=== PATIENT | male | born 1995 | race Hispanic/Latino ===

== ENCOUNTER 2018-11-10 08:22 | Observation (INO) | payer OTHER, SELFPAY ==
[2018-11-10] MEDS ORDERED: ONDANSETRON 4 MG/2 ML VIAL ONE (09:03)
[2018-11-10] MEDS ORDERED: MORPHINE 4 MG/ML SYR ONE (09:03)
[2018-11-10] MEDS ORDERED: NA CHLORIDE 0.9% 1,000 ML ONE (09:04)
[2018-11-10 09:14] LABS: Absolute Monocytes 0.8 K/uL (0.1-1.3); Absolute Neutrophil 12.8 K/uL (1.8-8.0); Basophils % 0.2 % (0-1.3); Eosinophils % 0.1 % (0-4.4); Hematocrit 53.4 % (39.6-49.0); Lymphocytes % 7.1 % (15.3-44.8); MPV 8.6 fL (7.6-11.3); Monocytes % 5.5 % (3.3-12.3); RBC Red Blood Cell Count 6.21 M/uL (4.33-5.43)
[2018-11-10 09:34] LABS: ALT/SGPT 62 U/L (12-78); AST/SGOT 25 U/L (15-37); Albumin 3.9 g/dL (3.4-5.0); Alkaline Phosphatase 115 U/L (45-117); BUN Blood Urea Nitrogen 14 mg/dL (7-18); Bicarbonate 23 mmol/L (21-32); Bilirubin Direct 0.2 mg/dL (0-0.2); Bilirubin Total 0.8 mg/dL (0.2-1.0); Glucose Level 326 mg/dL (74-106); Lipase 61 U/L (73-393); Potassium 3.8 mmol/L (3.5-5.1); Protein, Total 8.8 g/dL (6.4-8.2); Sodium Level 135 mmol/L (136-145)
[2018-11-10 09:53] LABS: Blood Morphology Comment NOT SEEN (NOT SEEN); Platelet Estimate ADEQ
--- NOTE | 2018-11-10 10:14 | RAD REPORT ---
EXAM DESCRIPTION: CTAbdomen Pelvis W Contrast - 11/10/2018 10:00 am CLINICAL HISTORY: Abdominal pain. abdominal pain, IV ONLY COMPARISON: No comparisons TECHNIQUE: Biphasic CT imaging of the abdomen and pelvis was performed with 100 ml non-ionic IV cont rast. All CT scans are performed using dose optimization technique as appropriate and may include automated exposure control or mA/KV adjustment according to patient size. FINDINGS: The lung bases are clear. Diffuse fatty liver is present. The spleen, pancreas, adrenal glands and kidneys are within normal li mits. No definitive bowel obstruction, free air, free fluid or abscess. Multiple mildly dilated and thicken ed small bowel loops are present suggesting a nonspecific enteritis. The appendix is normal. No evid ence of significant lymphadenopathy. No suspicious bony findings. IMPRESSION: Multiple mildly dilated and thickened small bowel loops in the central abdomen likely in dicates a [id number] nonspecific enteritis. Given that in early mechanical small-bowel obstruction can have a similar appearance, a follow-up trevor dy would be recommended if the patient's symptomology worsens over time. Diffuse fatty liver.
--- NOTE | 2018-11-10 10:56 | ER ---
Nurse's Notes [facility] Name: Davy Cruz Age: 23 yrs Sex: Male : 1995 Arrival Date: 11/10/2018 Time: 08:24 Bed 7 Private MD: Diagnosis: Bowel Obstruction;Hyperglycemia Presentation: 11/10 08:33 Presenting complaint: Patient states: upper abd pain, N/V/D that began yesterday. ss Transition of care: patient was not received from another setting of care. Onset of symptoms was November 09, 2018. Risk Assessment: Do you want to hurt yourself or someone else? Patient reports no desire to harm self or others. Initial Sepsis Screen: Does the patient meet any 2 criteria? No. Patient's initial sepsis screen is negative. Does the patient have a suspected source of infection? No. Patient's initial sepsis screen is negative. Care prior to arrival: None. 08:33 Method Of Arrival: Ambulatory ss 08:33 Acuity: MICHAEL 3 ss Historical: - Allergies: 08:34 No Known Allergies; ss - Home Meds: 08:34 None [Active]; ss - PMHx: 08:34 None; ss - PSHx: 08:34 None; ss - Immunization history:: Adult Immunizations up to date. - Social history:: Smoking status: Patient/guardian denies using tobacco. - Ebola Screening: : Patient denies exposure to infectious person Patient denies travel to an Ebola-affected area in the 21 days before illness onset. Screenin:29 Abuse screen: Denies threats or abuse. Denies injuries from another. Nutritional sv screening: No deficits noted. Tuberculosis screening: No symptoms or risk factors identified. Fall Risk None identified. Assessment: 08:45 General: Appears in no apparent distress. uncomfortable, well developed, Behavior is sv calm, cooperative, appropriate for age. Pain: Complains of pain in right upper quadrant and left upper quadrant Pain currently is 9 out of 10 on a pain scale. Pain began 1 day ago. Is continuous. Neuro: Level of Consciousness is awake, alert, obeys commands, Oriented to person, place, time, situation, Moves all extremities. Full function Gait is steady. Respiratory: Respiratory effort is even, unlabored, Respiratory pattern is regular, symmetrical. GI: Abdomen is flat, Abd is soft X 4 quads Abdomen is tender to palpation in right upper quadrant and left upper quadrant Reports diarrhea, nausea, vomiting. Derm: Skin is pink, warm \T\ dry. 10:10 Reassessment: Patient appears in no apparent distress at this time. Patient and/or sv family updated on plan of care and expected duration. Pain level reassessed. Patient is alert, oriented x 3, equal unlabored respirations, skin warm/dry/pink. 11:10 Reassessment: Patient appears in no apparent distress at this time. Patient and/or sv family updated on plan of care and expected duration. Pain level reassessed. Patient is alert, oriented x 3, equal unlabored respirations, skin warm/dry/pink. Patient states feeling better. Patient states symptoms have improved. 11:59 Reassessment: Nurse to call back for report. sv 12:35 Reassessment: Patient appears in no apparent distress at this time. Patient and/or sv family updated on plan of care and expected duration. Pain level reassessed. Patient is alert, oriented x 3, equal unlabored respirations, skin warm/dry/pink. Patient states feeling better. Patient states symptoms have improved. Vital Signs: 08:34 BP 132 / 95; Pulse 103; Resp 16; Temp 97.8(TE); Pulse Ox 97% on R/A; Weight 95.25 kg; Height 5 ft. 6 in. (167.64 cm); Pain 9/10; 09:10 BP 138 / 98; Pulse 107; Resp 18; Pulse Ox 95% ; sv 10:12 BP 134 / 75; Pulse 107; Resp 18; Pulse Ox 95% ; sv 11:58 BP 132 / 80; Pulse 102; Resp 18; Pulse Ox 99% ; sv 08:34 Body Mass Index 33.89 (95.25 kg, 167.64 cm) ED Course: 08:24 Patient arrived in ED. as 08:27 Yon Acharya PA is PHCP. senthilm 08:27 Parag Wolff MD is Attending Physician. [facility] 08:29 Lizeth Ivan, BARBARA is Primary Nurse. sv 08:29 Arm band placed on Patient placed in an exam room, on a stretcher. sv 08:29 Patient has correct armband on for positive identification. Bed in low position. Call sv light in reach. Door closed. Head of bed elevated. 08:34 Triage completed. ss 08:46 Nurse Practitioner and/or Physician Fagoter to see patient. sv 08:50 Missed attempt(s): 20 gauge in right antecubital area. Bleeding controlled, band aid sv applied, catheter tip intact. 08:55 Initial lab(s) drawn, by me, sent to lab. Inserted saline lock: 20 gauge in left sv antecubital area, using aseptic technique. Blood collected. Flushed left antecubital with 5 ml normal saline. 09:09 Radiology exam delayed due to lab results not completed at this time. (BUN/Creatinine). sj 09:[address] Scan. sv 09:[address] via wheelchair. sj 10:01 CT Abd/Pelvis - W/Contrast In Process Unspecified. EDMS 10:[address] Patient [address] back from CT. sg 10:55 Darrel Hemphill DO is Hospitalizing Provider. senthilm 11:59 No provider procedures requiring assistance completed. Patient admitted, IV remains in sv place. intact. Administered Medications: 09:00 Drug: NS 0.9% 1000 ml Route: IV; Rate: 1 bolus; Site: left antecubital; sv 10:20 Follow up: Response: No adverse reaction; IV Status: Completed infusion; IV Intake: sv 1000ml 09:00 Drug: Zofran 4 mg Route: IVP; Site: left antecubital; sv 09:30 Follow up: Response: No adverse reaction sv 09:02 Drug: morphine 4 mg Route: IVP; Site: left antecubital; sv 09:30 Follow up: Response: No adverse reaction sv 11:10 Drug: Flagyl 500 mg Volume: 100 ml; Route: IVPB; Rate: 200 ml/hr; Infused Over: 30 sv mins; Site: left antecubital; 12:20 Follow up: Response: No adverse reaction; IV Status: Completed infusion sg 11:40 Drug: Cipro 400 mg Volume: 200 ml; Route: IVPB; Infused Over: 60 mins; Site: left sg antecubital; 12:46 Follow up: Response: No adverse reaction; IV Status: Completed infusion sg Intake: 10:20 IV: 1000ml; Total: 1000ml. sv Outcome: 10:56 Decision to Hospitalize by Provider. aster 12:37 Admitted to Med/surg accompanied by tech, via wheelchair, room 224, with chart, Report sv called to Elvia JIMENEZ 12:37 Condition: stable 12:37 Instructed on the need for admit. 12:47 Patient left the ED. sg Signatures: Dispatcher [employer] Lizeth Lino RN RN sv Gay, Steven, RN RN sg Mickail, Joel, PA PA jmm Jones, Susan sj Martinez, Amelia as Smirch, Shelby, RN RN ss
--- NOTE | 2018-11-10 10:57 | EDPHYS ---
Physician Documentation [facility] Name: Davy Cruz Age: 23 yrs Sex: Male : 1995 Arrival Date: 11/10/2018 Time: 08:24 Bed 7 Private MD: ED Physician Parag Wolff HPI: 11/10 09:09 This 23 yrs old Male presents to ER via Ambulatory with complaints of jmm Abdominal Pain. 09:09 The patient presents with abdominal pain. Onset: The symptoms/episode began/occurred jmm gradually, 1 day(s) ago. The symptoms radiate to Associated signs and symptoms: Pertinent positives: nausea and vomiting, diarrhea. This is a 23 year old male with no chronic medical conditions that presents to the ED with complaints of epigastric abdominal pain, vomiting, diarrhea beginning 1 day ago. Patient denies recent abx use, denies recent travel. . Historical: - Allergies: 08:34 No Known Allergies; ss - Home Meds: 08:34 None [Active]; ss - PMHx: 08:34 None; ss - PSHx: 08:34 None; ss - Immunization history:: Adult Immunizations up to date. - Social history:: Smoking status: Patient/guardian denies using tobacco. - Ebola Screening: : Patient denies exposure to infectious person Patient denies travel to an Ebola-affected area in the 21 days before illness onset. ROS: 09:09 Constitutional: Negative for fever, chills, and weight loss, Cardiovascular: Negative jmm for chest pain, palpitations, and edema, Respiratory: Negative for shortness of breath, cough, wheezing, and pleuritic chest pain. 09:09 Abdomen/GI: Positive for abdominal pain, nausea and vomiting, diarrhea. 09:09 Back: Positive for radiated pain. 09:09 All other systems are negative. Exam: 09:09 Head/Face: atraumatic. Eyes: EOMI, no conjunctival erythema appreciated ENT: Moist jmm Mucus Membranes Neck: Trachea midline, Supple Chest/axilla: Normal chest wall appearance and motion. Cardiovascular: Regular rate and rhythm. No edema appreciated Respiratory: Normal respirations, no respiratory distress appreciated 09:09 Constitutional: The patient appears alert, awake, uncomfortable. 09:09 Abdomen/GI: Inspection: abdomen appears normal, Bowel sounds: normal, Palpation: soft, mild abdominal tenderness, in the right upper quadrant, left upper quadrant, right lower quadrant and left lower quadrant. 09:09 Back: ROM is normal. 09:09 Musculoskeletal/extremity: ROM: intact in all extremities. 09:09 Skin: Appearance: Color: normal in color. 09:09 Neuro: Orientation: is normal, Mentation: is normal, Memory: is normal, Gait: is steady. 09:09 Psych: Behavior/mood is pleasant, cooperative. Vital Signs: 08:34 BP 132 / 95; Pulse 103; Resp 16; Temp 97.8(TE); Pulse Ox 97% on R/A; Weight 95.25 kg; ss Height 5 ft. 6 in. (167.64 cm); Pain 9/10; 09:10 BP 138 / 98; Pulse 107; Resp 18; Pulse Ox 95% ; sv 10:12 BP 134 / 75; Pulse 107; Resp 18; Pulse Ox 95% ; sv 11:58 BP 132 / 80; Pulse 102; Resp 18; Pulse Ox 99% ; sv 08:34 Body Mass Index 33.89 (95.25 kg, 167.64 cm) ss MDM: 08:29 Patient medically screened. bill 10:46 Data reviewed: vital signs, nurses notes. Counseling: I had a detailed discussion with aster the patient and/or guardian regarding: the historical points, exam findings, and any diagnostic results supporting the discharge/admit diagnosis, lab results, radiology results, the need for further work-up and treatment in the hospital. ED course: I discussed the patient with Dr Hemphill whom will see the patient in the ED. . 10:55 Data reviewed: lab test result(s), radiologic studies, CT scan. [facility] 11/10 08:48 Order name: Basic Metabolic Panel; Complete Time: 09:39 [facility] 11/10 08:48 Order name: CBC with Diff; Complete Time: 10:00 [facility] 11/10 08:48 Order name: Creatinine for Radiology; Complete Time: 09:39 [facility] 11/10 08:48 Order name: Hepatic Function; Complete Time: 09:39 [facility] 11/10 08:48 Order name: Lipase; Complete Time: 09:39 [facility] 11/10 09:53 Order name: Manual Differential; Complete Time: 10:00 [facility] 11/10 08:48 Order name: CT Abd/Pelvis - W/Contrast; Complete Time: 10:17 [facility] 11/10 10:49 Order name: Lactate; Complete Time: 12:17 [facility] 11/10 10:49 Order name: Procalcitonin; Complete Time: 12:17 [facility] 11/10 08:48 Order name: IV Saline Lock; Complete Time: 09:06 [facility] 11/10 08:48 Order name: Labs collected and sent; Complete Time: 09:06 [facility] Administered Medications: 09:00 Drug: NS 0.9% 1000 ml Route: IV; Rate: 1 bolus; Site: left antecubital; sv 10:20 Follow up: Response: No adverse reaction; IV Status: Completed infusion; IV Intake: sv 1000ml 09:00 Drug: Zofran 4 mg Route: IVP; Site: left antecubital; sv 09:30 Follow up: Response: No adverse reaction sv 09:02 Drug: morphine 4 mg Route: IVP; Site: left antecubital; sv 09:30 Follow up: Response: No adverse reaction sv 11:10 Drug: Flagyl 500 mg Volume: 100 ml; Route: IVPB; Rate: 200 ml/hr; Infused Over: 30 sv mins; Site: left antecubital; 12:20 Follow up: Response: No adverse reaction; IV Status: Completed infusion sg 11:40 Drug: Cipro 400 mg Volume: 200 ml; Route: IVPB; Infused Over: 60 mins; Site: left sg antecubital; 12:46 Follow up: Response: No adverse reaction; IV Status: Completed infusion sg Disposition: 16:43 Co-signature as Attending Physician, Parag Wolff MD I agree with the assessment and bill plan of care. Disposition: 11/10/18 10:56 Hospitalization ordered by Darrel Hemphill for Observation. Preliminary diagnosis are Bowel Obstruction, Hyperglycemia. - Bed requested for Telemetry/MedSurg (observation). - Status is Observation. sg - Condition is Stable. - Problem is new. - Symptoms are unchanged. UTI on Admission? No Signatures: Dispatcher [employer] Lizeth Lino RN Jessica Vernon RN Gaurav Epps RN RN sg Anderson, Corey, MD MD cha Mickail, Joel, PA PA jmm Smirch, Shelby RN RN ss Corrections: (The following items were deleted from the chart) 11:42 10:56 Hospitalization Ordered by Darrel Hemphill DO for Observation. Preliminary dw diagnosis is Bowel Obstruction; Hyperglycemia. Bed requested for Telemetry/MedSurg (observation). Status is Observation. Condition is Stable. Problem is new. Symptoms are unchanged. UTI on Admission? No. jmm 12:47 11:42 11/10/2018 10:56 Hospitalization Ordered by Darrel Hemphill DO for Observation. sg Preliminary diagnosis is Bowel Obstruction; Hyperglycemia. Bed requested for Telemetry/MedSurg (observation). Status is Observation. Condition is Stable. Problem is new. Symptoms are unchanged. UTI on Admission? No. dw
[2018-11-10] MEDS ORDERED: CIPROFLOXACIN 400mg IV 400 MG/200 ML BAG IV ONE (11:08)
[2018-11-10] MEDS ORDERED: METRONIDAZOLE 500mg IVPB 500 MG/100 ML BAG IV ONE (11:08)
--- NOTE | 2018-11-10 11:28 | P.HP ---
Certification for Inpatient Patient admitted to: Observation With expected LOS: <2 Midnights Patient will require the following post-hospital care: None Practitioner: I am a practitioner with admitting privileges, knowledge of patient current condition, hospital course, and medical plan of care. Services: Services provided to patient in accordance with Admission requirements found in Title 42 Section 412.3 of the Code of Federal Regulations Patient History Date of Service: 11/10/18 Primary Care Provider: None Reason for admission: Nausea, vomiting, abdominal pain with diarrhea History of Present Illness: 23-year-old male presented to emergency room with multiple complaints including nausea, vomiting, diarrhea and abdominal pain. Patient reports nausea, vomiting, diarrhea and abdominal pain starting yesterday. Diarrhea has been very watery. He has not been able to keep anything down since yesterday. He continued to have increasing pain throughout the abdomen with nausea. He decided to come to the ER for further evaluation. Patient denied any significant fever. Some chills noted. He reports some sick contacts in the home with a niece and nephew with cough. In the ER patient evaluated. Patient required pain medication IV. White count elevated at 14.7, hemoglobin 18. Neutrophils at 87. Sodium 135, potassium 3.8, blood sugar elevated at 326. Lipase unremarkable. CT scan showed multiple dilated and thickened small loops of bowel likely mild to moderate enteritis versus early small bowel obstruction. Fatty liver also noted admitted for further evaluation and treatment. In the ER patient appeared stable. Patient did not appear septic. Patient without any past medical history. There is a family history of diabetes. Home medications list reviewed: Yes - Past Medical/Surgical History Diabetic: No Past Medical History: Patient denies medical history Past Surgical History: Patient denies surgical history Psychosocial/ Personal History: Patient is single. He has no children. 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 - Family History Brother -: Diabetes Father -: Diabetes - Social History Smoking Status: Never smoker Alcohol use: Yes CD- Drugs: Yes Caffeine use: Yes Place of Residence: Home Review of Systems General: Chills, Weakness, As per HPI Eyes: Unremarkable ENT: Unremarkable Respiratory: Unremarkable Cardiovascular: Unremarkable Gastrointestinal: Nausea, Vomiting, Abdominal Pain, Diarrhea, As per HPI Genitourinary: Unremarkable Musculoskeletal: Unremarkable Integumentary: Unremarkable Neurological: Unremarkable Lymphatics: Unremarkable Physical Examination - Physical Exam General: Alert, In no apparent distress, Oriented x3, Cooperative HEENT: Atraumatic, Normocephalic, PERRLA, Other (Dry mucous membranes), EOMI Neck: Supple, No Thyromegaly Respiratory: Clear to auscultation bilaterally, Normal air movement Cardiovascular: Normal pulses, Regular rate/rhythm Gastrointestinal: Normal bowel sounds, Soft and benign, Non-distended, No rebound, No guarding, Tenderness (mild tenderness to the abdomen diffusely with deep palpation.) Musculoskeletal: No erythema, No tenderness, No warmth Integumentary: No tenderness/swelling, No erythema, No warmth, No cyanosis Neurological: Normal speech, Normal strength at 5/5 x4 extr, Normal tone, Normal affect - Studies Laboratory Data (last 24 hrs) 11/10/18 08:55: Creatinine 0.66 11/10/18 08:55: WBC 14.7 H, Hgb 18.1 H, Hct 53.4 H, Plt Count 282 11/10/18 08:55: Sodium 135 L, Potassium 3.8, BUN 14, Creatinine 0.71, Glucose 326 H, Total Bilirubin 0.8, AST 25, ALT 62, Alkaline Phosphatase 115, Lipase 61 L Assessment and Plan - Plan Impression: Nausea, vomiting, abdominal pain with diarrhea secondary to mild to moderate enteritis versus early small bowel obstruction New diagnosis of diabetes type 2 Obesity Fatty liver Plan: Nausea, vomiting, abdominal pain with diarrhea secondary to mild to moderate enteritis versus early small bowel obstruction: Patient will be admitted for further treatment. Likely viral. Will keep the patient NPO. Will have surgery evaluate patient and determine when to advance diet. Will need to monitor for small bowel obstruction. Will start IV Cipro and Flagyl. Provide medication for nausea, pain. Blood cultures obtained. Will continue with IV fluids. Will obtain stool culture for C diff. Will continue to reassess. Will monitor closely. Anticipate discharge in the next 24-48 hr if improved. New diagnosis of diabetes type 2: Blood sugar elevated. Will monitor Accu- Cheks and start sliding scale. Will check A1c. Obesity: Will calculate BMI. Will need to address lifestyle modification education. Fatty liver: CT scan revealed fatty liver. Education will be provided. Discharge Plan: Home Plan to discharge in: 48 Hours - Advance Directives Does patient have a Living Will: No Does patient have a Durable POA for Healthcare: No - Code Status/Comfort Care Code Status Assessed: Yes (Patient full code.) Time Spent Managing Pts Care (In Minutes): 55
[2018-11-10] MEDS ORDERED: ACETAMINOPHEN 500 MG TAB PO PRN (13:05)
[2018-11-10] MEDS ORDERED: TRAMADOL HCL 50 MG TAB PO PRN (13:05)
[2018-11-10] MEDS ORDERED: ONDANSETRON 4 MG/2 ML VIAL IV PRN (13:05)
[2018-11-10] MEDS ORDERED: HYDROCODONE/APAP 7.5/325 MG TAB PO PRN (13:05)
[2018-11-10] MEDS ORDERED: ACETAMINOPHEN 650MG/RECT SUPP PR PRN (13:05)
[2018-11-10] MEDS ORDERED: MORPHINE 2 MG/ML SYR IV PRN (13:05)
[2018-11-10] MEDS: INSULIN -REGULAR HUMAN 50 UNIT/0.5 ML ML SQ SCH ×3 (13:05→22:01)
[2018-11-10] MEDS: NA CHLORIDE 0.9% 1,000 ML IV SCH ×2 (13:30→22:01)
[2018-11-10 15:05] LABS: Thyroid Stimulating Hormone 0.495 uIU/mL (0.360-3.740)
[2018-11-10 15:17] VITALS: BMI 33.9
[2018-11-10] MEDS ORDERED: D50W 25 GM/50 ML SYRINGE IV PRN (15:22)
[2018-11-10] MEDS ORDERED: GLUCAGON 1 MG/VIAL IM PRN (15:22)
[2018-11-10] MEDS ORDERED: INFLUENZA VACCINE (for 3y+) 0.5 ML DOSE IMVAC ONE (16:00)
[2018-11-10] MEDS: METRONIDAZOLE 500mg IVPB 500 MG/100 ML BAG IV SCH (16:19)
--- NOTE | 2018-11-10 18:03 | CON ---
Date of Consultation: 11/10/2018 Brief History Of Present Illness: The patient is a 23-year-old male, who presents to [facility] with approximately 1 to 1-1/2-day history of global midline abdominal pain, predominantly global a ll over his abdomen, but worse in the midline. It was described as a throbbing, crescendo-decrescend o type abdominal pain that never resolved completely, associated with nausea and vomiting. He had so me subjective chills. No fever. He has not had similar episodes before in the past. No sick contac ts. No recent travel. No new food exposures. He states that he additionally after having multiple episodes of diarrhea and vomiting, felt a little dehydrated and had some lightheaded episodes intermi ttently, but no syncopal episodes or any other complaints. Past Medical History: Significant for diabetes and shingles. Past Surgical History: Denies. Home Medications: None. Allergies: NO KNOWN DRUG ALLERGIES. Social History: He smokes small cigars and marijuana on occasion. Denies any other recreational ron g use. Denies alcohol use. Review of Systems: A 10-point review of systems other than HPI, denies. Physical Examination: General: At the time of my examination, he is awake, alert, and oriented. Vital Signs: His blood pressure 138/98, pulse 107, respiratory rate 18, temperature 97.8. Psychiatric: Appropriate and conversive. HEENT: Normocephalic. Sclerae icteric. Mucous membranes are moist. Oropharynx is clear. Neck: Supple. No JVD. Chest: Normal expansion and excursion. Cardiovascular: Regular rate and rhythm. Pulmonary: Tachycardic, but otherwise regular. Abdomen: Soft with mild tenderness globally. No focal peritonitis. No peritoneal signs. No reboun d. No guarding. No succussion splash. No ascites. No hernias appreciated. Extremities: No clubbing, cyanosis, or edema. Skin: Warm and dry. Laboratory Data: Reveals white blood count of 14.7, hemoglobin 18.1, hematocrit 53.4, platelet count 282, neutrophils 87%. Sodium 135, potassium 3.8, chloride 102, carbon dioxide 23, BUN 14, creatinin e 0.6, glucose is 326, lactic acid 1.5, total bilirubin 0.8, direct component 0.2, AST 25, ALT 62, al kaline phosphatase 115, lipase is 61. Procalcitonin 0.61. He had imaging performed, which included a CT scan of the abdomen and pelvis, officially read as multiple mildly dilated and thickened small b owel loops in the central abdomen likely indicates a mild to moderate nonspecific enteritis given ear ly mechanical small bowel obstruction after similar experience. Follow up study will be recommended if the patient's symptomatology worsens over time and diffuse fatty liver. Assessment And Plan: This is a 23-year-old male, who presents with signs and symptoms of enteritis. 1.IV fluid hydration. 2.Antibiotic coverage. 3.Okay to start sips of p.o. clears. 4.Serial abdominal exams. 5.I explained risks, benefits, alternatives of the above stated plan, the patient agrees to proceed as indicated. Thank you for this interesting consult. LEIGHA Voice ID: [id number] Report ID: [id number]
[2018-11-10 18:44] LABS: Urine Appearance CLEAR; Urine Bilirubin NEGATIVE (NEG); Urine Blood NEGATIVE (NEG); Urine Color YELLOW; Urine Glucose 3+ (NEG); Urine Protein 1+ (NEG); Urine Specific Gravity >=1.030 (1.005-1.030); Urine Urobilinogen 0.2 mg/dL (0.2-1.0); Urine pH 5.5 (5.0-7.0)
[2018-11-10 18:48] LABS: Urine Microscopic Reflex ORDER UMIC
[2018-11-10 19:03] LABS: Urine Bacteria <20 /HPF (NONE SEEN); Urine Culture Reflex Order REFLEXED; Urine Mucus 1+ /HPF (NONE SEEN); Urine RBC <5 /HPF (NONE SEEN)
[2018-11-10] MEDS: CIPROFLOXACIN 400mg IV 400 MG/200 ML BAG IV SCH (22:02)
[2018-11-10] MEDS: FAMOTIDINE 20 MG/2 ML VIAL IV SCH (22:05)
[2018-11-11] MEDS: METRONIDAZOLE 500mg IVPB 500 MG/100 ML BAG IV SCH ×2 (00:29→09:49)
[2018-11-11 06:28] LABS: Absolute Lymphocytes (CBC) 2.1 K/uL (0.7-4.9); Absolute Monocytes 1.1 K/uL (0.1-1.3); Absolute Neutrophil 5.5 K/uL (1.8-8.0); Basophils % 0.3 % (0-1.3); Eosinophils % 2.6 % (0-4.4); Hematocrit 46.2 % (39.6-49.0); Lymphocytes % 23.2 % (15.3-44.8); MPV 8.7 fL (7.6-11.3); Monocytes % 12.2 % (3.3-12.3); RBC Red Blood Cell Count 5.38 M/uL (4.33-5.43)
[2018-11-11 06:38] LABS: BUN Blood Urea Nitrogen 12 mg/dL (7-18); Bicarbonate 27 mmol/L (21-32); Glucose Level 254 mg/dL (74-106); Potassium 3.9 mmol/L (3.5-5.1); Sodium Level 139 mmol/L (136-145)
[2018-11-11] MEDS: INSULIN -REGULAR HUMAN 50 UNIT/0.5 ML ML SQ SCH ×2 (07:30→11:30)
[2018-11-11] MEDS ORDERED: ENOXAPARIN 40 MG/0.4 ML SQ SCH (09:00)
[2018-11-11] MEDS ORDERED: POTASSIUM CL SA 10 MEQ TAB PO ONE (09:00)
[2018-11-11] MEDS: CIPROFLOXACIN 400mg IV 400 MG/200 ML BAG IV SCH (09:49)
[2018-11-11] MEDS: FAMOTIDINE 20 MG/2 ML VIAL IV SCH (09:50)
[2018-11-11] MEDS: NA CHLORIDE 0.9% 1,000 ML IV SCH (09:51)
[2018-11-11 11:36] VITALS: O2SAT 97
[2018-11-11 12:45] VITALS: BP 130/72; TEMP 97.1
--- NOTE | 2018-11-11 12:45 | P.DS ---
Admission Date: 11/10/18 Discharge Date: 11/11/18 Primary Care Provider: None Disposition: ROUTINE DISCHARGE Discharge Condition: GOOD Reason for Admission: Nausea, vomiting, abdominal pain with diarrhea Consultations: Surgery-Dr. Cifuentes Procedures: CT scan: COMPARISON: No comparisons TECHNIQUE: Biphasic CT imaging of the abdomen and pelvis was performed with 100 ml non-ionic IV contrast. All CT scans are performed using dose optimization technique as appropriate and may include automated exposure control or mA/KV adjustment according to patient size. FINDINGS: The lung bases are clear. Diffuse fatty liver is present. The spleen, pancreas, adrenal glands and kidneys are within normal limits. No definitive bowel obstruction, free air, free fluid or abscess. Multiple mildly dilated and thickened small bowel loops are present suggesting a nonspecific enteritis. The appendix is normal. No evidence of significant lymphadenopathy. No suspicious bony findings. IMPRESSION: Multiple mildly dilated and thickened small bowel loops in the central abdomen likely indicates a [id number] nonspecific enteritis. Medical Problem List: Nausea, vomiting, abdominal pain with diarrhea secondary to mild to moderate enteritis New diagnosis of diabetes type 2, A1c 10.9 Obesity, BMI 33.9 Fatty liver Brief History of Present Illness: 23-year-old male presented to emergency room with multiple complaints including nausea, vomiting, diarrhea and abdominal pain. Patient reports nausea, vomiting, diarrhea and abdominal pain starting yesterday. Diarrhea has been very watery. He has not been able to keep anything down since yesterday. He continued to have increasing pain throughout the abdomen with nausea. He decided to come to the ER for further evaluation. Patient denied any significant fever. Some chills noted. He reports some sick contacts in the home with a niece and nephew with cough. In the ER patient evaluated. Patient required pain medication IV. White count elevated at 14.7, hemoglobin 18. Neutrophils at 87. Sodium 135, potassium 3.8, blood sugar elevated at 326. Lipase unremarkable. CT scan showed multiple dilated and thickened small loops of bowel likely mild to moderate enteritis versus early small bowel obstruction. Fatty liver also noted admitted for further evaluation and treatment. In the ER patient appeared stable. Patient did not appear septic. Patient without any past medical history. There is a family history of diabetes. Hospital Course: Patient presented with nausea, vomiting and abdominal pain with noted diarrhea. Patient admitted for further evaluation. CT scan revealed mild to moderate enteritis. Patient was hospitalized. Patient seen and evaluated by surgery. No surgical intervention was required. Patient improved. At discharge he is without any significant abdominal pain. Patient able tolerate his diet. Diarrhea resolved. At discharge he will continue with Cipro 500 mg 1 pill twice daily and Flagyl 500 mg 3 times a day for 7 days. Patient will also be provided with Pepcid 20 mg twice daily. He will continue to adjust his diet to a 2000 ADA diet. Patient may follow up with surgery in 1-2 weeks to follow up this hospitalization. Patient found to have new diagnosis of diabetes mellitus type 2. Hemoglobin A1c 10.9. Diabetic education provided. At discharge he will start glipizide 5 mg once daily. Recommend to maintain blood sugars less 140 fasting and less than 200 after meals. Patient to establish care with a PCP to further address and monitor his diabetes. Patient may benefit with additional medication in the future. This can be further addressed by his PCP. Patient found to have fatty liver and obesity with BMI 33.9. Lifestyle modification education provided. Vital Signs/Physical Exam: Temp Pulse Resp BP Pulse Ox 97.2 F 78 14 133/71 97 11/11/18 08:00 11/11/18 08:00 11/11/18 08:00 11/11/18 08:00 11/11/18 08:00 General: Alert, In no apparent distress, Oriented x3, Cooperative HEENT: Atraumatic, Mucous membr. moist/pink Neck: Supple, No Thyromegaly Respiratory: Clear to auscultation bilaterally, Normal air movement Cardiovascular: Normal pulses, Regular rate/rhythm Gastrointestinal: Normal bowel sounds, Soft and benign, Non-distended, No tenderness, No masses, No rebound, No guarding Musculoskeletal: No erythema, No tenderness, No warmth Integumentary: No tenderness/swelling, No erythema, No warmth, No cyanosis Neurological: Normal speech, Normal strength at 5/5 x4 extr, Normal tone, Normal affect Laboratory Data at Discharge: WBC 9.0 K/uL (4.3-10.9) D 11/11/18 05:50 Hgb 16.0 g/dL (13.6-17.9) 11/11/18 05:50 Hct 46.2 % (39.6-49.0) 11/11/18 05:50 Plt Count 239 K/uL (152-406) 11/11/18 05:50 Sodium 139 mmol/L (136-145) 11/11/18 05:50 Potassium 3.9 mmol/L (3.5-5.1) 11/11/18 05:50 BUN 12 mg/dL (7-18) 11/11/18 05:50 Creatinine 0.64 mg/dL (0.55-1.3) 11/11/18 05:50 Glucose 254 mg/dL (74-106) H 11/11/18 05:50 Magnesium 2.0 mg/dL (1.8-2.4) 11/11/18 05:50 Total Bilirubin 0.8 mg/dL (0.2-1.0) 11/10/18 08:55 AST 25 U/L (15-37) 11/10/18 08:55 ALT 62 U/L (12-78) 11/10/18 08:55 Alkaline Phosphatase 115 U/L (45-117) 11/10/18 08:55 Lipase 61 U/L (73-393) L 11/10/18 08:55 Home Medications: Ciprofloxacin HCl [Cipro 500 MG Tablet] 500 mg PO BID #14 tab 11/11/18 Famotidine [Pepcid AC] 20 mg PO BID #30 tablet 11/11/18 Ondansetron HCl [Zofran] 4 mg PO TID PRN #20 tablet 11/11/18 glipiZIDE [Glipizide] 5 mg PO DAILY #30 tablet 11/11/18 metroNIDAZOLE [Flagyl] 500 mg PO Q8H #21 tablet 11/11/18 New Medications: Ciprofloxacin HCl [Cipro 500 MG Tablet] 500 mg PO BID #14 tab Famotidine [Pepcid AC] 20 mg PO BID #30 tablet glipiZIDE [Glipizide] 5 mg PO DAILY #30 tablet metroNIDAZOLE [Flagyl] 500 mg PO Q8H #21 tablet Ondansetron HCl [Zofran] 4 mg PO TID PRN #20 tablet PRN Reason: Nausea / Vomiting Patient Discharge Instructions: 1. Follow up with a PCP to establish care within 1 week. 2. Patient presented with nausea, vomiting and abdominal pain with noted diarrhea. CT scan revealed mild to moderate enteritis. Patient was hospitalized. Patient seen and evaluated by surgery. No surgical intervention was required. Patient improved. At discharge he is without any significant abdominal pain. Patient able tolerate his diet. Diarrhea resolved. At discharge he will continue with Cipro 500 mg 1 pill twice daily and Flagyl 500 mg 3 times a day for 7 days. Patient will also be provided with Pepcid 20 mg twice daily. He will continue to adjust his diet to a 2000 ADA diet. Patient may follow up with surgery in 1-2 weeks to follow up this hospitalization. 2. Patient found to have new diagnosis of diabetes mellitus type 2. Hemoglobin A1c 10.9. Diabetic education provided. At discharge he will start glipizide 5 mg once daily. Recommend to maintain blood sugars less 140 fasting and less than 200 after meals. Patient to establish care with a PCP to further address and monitor his diabetes. Patient may benefit with additional medication in the future. This can be further addressed by his PCP. 3. Patient found to have fatty liver and obesity with BMI 33.9. Lifestyle modification education provided. Diet: GI soft to ADA diet Activity: Ad sarah Time spent managing pt's care (in minutes): 55
--- NOTE | 2018-11-11 13:26 | P.PN ---
Subjective Date of Service: 11/11/18 Primary Care Provider: None Chief Complaint: Nausea, vomiting, abdominal pain with diarrhea Subjective: Improving (Patient pain has resolved, tolerating diet well, has some loose BM, but improved by report) Physical Examination - Vital Signs Temperature: 97.1 F Blood Pressure: 130/72 Pulse: 80 Respirations: 16 Pulse Ox (%): 98 - Physical Exam General: Alert, In no apparent distress, Cooperative HEENT: Atraumatic Respiratory: Clear to auscultation bilaterally Gastrointestinal: Soft and benign, Non-distended, No tenderness, No masses, No rebound, No guarding Assessment And Plan - Current Problems (Diagnosis) (1) Enteritis Current Visit: Yes Status: Acute Plan: - Advance diet - continue hydration with electrolyte solution such as gatorade - follow up in clinic PRN - serial exams until discharged
== END 2018-11-11 16:03 | disposition home or self-care (01) ==
LOC: ER 08:22 → ERHOLD 11:12 → 2ND 12:37
PROVIDERS: ADMIT Family Medicine; ATTEND Family Medicine
DX: K52.9 Noninfective gastroenteritis and colitis, unspecified (principal); E11.9 Type 2 diabetes mellitus without complications; E66.9 Obesity, unspecified; Z68.33 Body mass index [BMI] 33.0-33.9, adult; K76.0 Fatty (change of) liver, not elsewhere classified; Z23 Encounter for immunization
CPT/HCPCS: 36415; 74177; 80048; 80076; 81003; 81015; 82962; 83036; 83605; 83690; 83735; 84145; 84439; 84443; 85025; 87040; 87045; 87046; 87086; 87088; 87493; 96361; 96365; 96375; 99285; G0008; G0378; J0744; J1650; J2270; J2405; J7030; Q2035; Q9967

== ENCOUNTER 2020-03-29 20:15 | Emergency (ER) | payer SELFPAY ==
[2020-03-29] MEDS ORDERED: NA CHLORIDE 0.9% 1,000 ML ONE (23:46)
[2020-03-30 00:33] LABS: Absolute Lymphocytes (CBC) 1.3 K/uL (0.7-4.9); Basophils % 0.2 % (0-1.3); Hematocrit 45.5 % (39.6-49.0); Lymphocytes % 24.9 % (15.3-44.8); MPV 9.8 fL (7.6-11.3)
[2020-03-30 00:57] LABS: ALT/SGPT 90 U/L (12-78); AST/SGOT 54 U/L (15-37); Albumin 2.9 g/dL (3.4-5.0); Alkaline Phosphatase 76 U/L (45-117); BUN Blood Urea Nitrogen 10 mg/dL (7-18); Bicarbonate 21 mmol/L (21-32); Bilirubin Direct 0.1 mg/dL (0-0.2); Bilirubin Total 0.4 mg/dL (0.2-1.0); Glucose Level 385 mg/dL (74-106); Lipase 146 U/L (73-393); Magnesium 1.8 mg/dL (1.8-2.4); NT PRO-BNP 22 pg/mL (<125); Potassium 3.4 mmol/L (3.5-5.1); Protein, Total 7.4 g/dL (6.4-8.2); Sodium Level 134 mmol/L (136-145); Troponin (Emerg Dept Use Only) < 0.02 ng/mL (0.0-0.045)
--- NOTE | 2020-03-30 01:22 | ER ---
Nurse's Notes [facility] Name: Davy Cruz Age: 24 yrs Sex: Male : 1995 Arrival Date: 03/29/2020 Time: 20:16 Bed 6 Private MD: Diagnosis: Chest pain, unspecified;Pneumonia, unspecified organism-right lower lobe;Type 2 diabetes mellitus-new diagnosis Presentation: 03/29 20:47 Acuity: MICHAEL 3 sg 20:47 Chief complaint: Patient states: I fell and hit my head last Friday, I havent been sg feeling right sense then, my heads been throbbing and I havent had much of an appetite as well, reports having pain in the back of head and back of neck. 23:00 Coronavirus screen: Proceed with normal triage. rr5 23:00 Ebola Screen: Patient negative for fever greater than or equal to 101.5 degrees rr5 Fahrenheit, and additional compatible Ebola Virus Disease symptoms Patient denies exposure to infectious person. Patient denies travel to an Ebola-affected area in the 21 days before illness onset. Initial Sepsis Screen: Does the patient meet any 2 criteria? No. Patient's initial sepsis screen is negative. Does the patient have a suspected source of infection? No. Patient's initial sepsis screen is negative. Risk Assessment: Do you want to hurt yourself or someone else? Patient reports no desire to harm self or others. Onset of symptoms was March 2020. 23:00 Method Of Arrival: Ambulatory rr5 Historical: - Allergies: 20:47 No Known Allergies; sg - Home Meds: 21:30 None [Active]; sg - PMHx: 21:30 None; sg - PSHx: 20:47 None; sg - Immunization history:: Adult Immunizations up to date. - Social history:: Smoking status: Patient reports the use of cigarette tobacco products, Patient uses alcohol. - Family history:: not pertinent. Screenin:30 Abuse screen: Denies threats or abuse. Denies injuries from another. Nutritional rr5 screening: No deficits noted. Tuberculosis screening: No symptoms or risk factors identified. Fall Risk IV access (20 points). Total Campuzano Fall Scale indicates No Risk (0-24 pts). Assessment: 23:00 General: Appears in no apparent distress. uncomfortable, Behavior is calm. rr5 23:00 Pain: Complains of pain in neck Pain radiates to back, chest and abdomen Pain currently rr5 is 8 out of 10 on a pain scale. Quality of pain is described as aching, Pain began gradually, Is intermittent. Neuro: Level of Consciousness is awake, alert, obeys commands, Oriented to person, place, time, situation. Cardiovascular: Reports chest pain, Capillary refill < 3 seconds Patient's skin is warm and dry. Respiratory: Airway is patent Respiratory effort is even, unlabored, Respiratory pattern is regular, symmetrical, Denies cough, shortness of breath. GI: Abdomen is round Reports upper abdominal pain. : No signs and/or symptoms were reported regarding the genitourinary system. EENT: No signs and/or symptoms were reported regarding the EENT system. Derm: Skin is intact, is healthy with good turgor, Skin temperature is warm. Musculoskeletal: Circulation, motion, and sensation intact. Capillary refill < 3 seconds. 03/30 00:00 Reassessment: Patient appears in no apparent distress at this time. Patient and/or rr5 family updated on plan of care and expected duration. Pain level reassessed. Patient is alert, oriented x 3, equal unlabored respirations, skin warm/dry/pink. awaiting for results. 01:00 Reassessment: Patient appears in no apparent distress at this time. Patient is alert, rr5 oriented x 3, equal unlabored respirations, skin warm/dry/pink. Patient states feeling better. Patient states symptoms have improved. 01:30 Reassessment: Patient appears in no apparent distress at this time. Patient is alert, rr5 oriented x 3, equal unlabored respirations, skin warm/dry/pink. for discharge after IV infusion. 02:55 Reassessment: Patient appears in no apparent distress at this time. Patient is alert, rr5 oriented x 3, equal unlabored respirations, skin warm/dry/pink. discharge instruction given and explained without complaints made. Patient states feeling better. Patient states symptoms have improved. Vital Signs: 03/29 21:24 Pulse 108; Resp 18; Temp 98.0; Weight 92.53 kg; Height 5 ft. 8 in. (172.72 cm); sg 21:24 BP 142 / 91; Pulse 112; Resp 18; sg 23:00 BP 126 / 85; Pulse 110; Resp 19; Temp 98.2; Pulse Ox 99% ; Pain 4/10; rr5 03/30 00:00 BP 143 / 75; Pulse 99; Resp 17; Pulse Ox 98% on R/A; rr5 01:06 BP 136 / 83; Pulse 94; Resp 17; Pulse Ox 99% ; rr5 02:00 BP 121 / 70; Pulse 89; Resp 19; Pulse Ox 100% on R/A; rr5 02:50 BP 133 / 84; Pulse 90; Resp 19; Temp 97.7; Pulse Ox 99% on R/A; rr5 03/29 21:24 Body Mass Index 31.02 (92.53 kg, 172.72 cm) sg ED Course: 03/29 20:16 Patient arrived in ED. cl3 20:47 Triage completed. sg 21:24 Arm band placed on. sg 22:59 Felix Adams, BARBARA is Primary Nurse. rr5 23:05 Parag Wolff MD is Attending Physician. bill 23:30 Patient has correct armband on for positive identification. Placed in gown. Bed in low rr5 position. Call light in reach. security monitor on. Pulse ox on. NIBP on. 23:45 EKG done, by ED staff, reviewed by Parag Wolff MD. rr5 03/30 00:00 Inserted saline lock: 20 gauge in right forearm, using aseptic technique. Blood rr5 collected. 00:00 First set of blood cultures drawn by me. rr5 00:10 Second set of blood cultures drawn by me. rr5 01:08 No provider procedures requiring assistance completed. Patient maintains SpO2 rr5 saturation greater than 95% on room air. 01:19 Michael Aleman DO is Referral Physician. bill 02:57 IV discontinued, intact, bleeding controlled, No redness/swelling at site. Pressure rr5 dressing applied. 08:36 Health Dept notified/ PUI # [id number]/ Stephanie in lab notified. eb Administered Medications: 00:10 Drug: NS 0.9% 1000 ml Route: IV; Rate: 1 bolus; Site: right forearm; rr5 01:10 Follow up: Response: No adverse reaction; IV Status: Completed infusion; IV Intake: rr5 1000ml 01:16 CANCELLED (Duplicate Order): Decadron - Dexamethasone 10 mg IVP once bill 01:34 Drug: Insulin Regular Human 10 units {Co-Signature: rr5 (Felix Adams RN).} Route: Sub-Q; Site: right lower abdomen; 02:45 Follow up: Response: No adverse reaction; Blood sugar is lowered rr5 01:35 Drug: metFORMIN 750 mg Route: PO; 02:40 Follow up: Response: No adverse reaction; Blood sugar is lowered rr5 01:38 Drug: Rocephin - (cefTRIAXone) 1 grams Route: IVPB; Infused Over: 30 mins; Site: right forearm; 02:10 Follow up: Response: No adverse reaction; IV Status: Completed infusion; IV Intake: [id number] 01:38 Drug: NS 0.9% 1000 ml Route: IV; Rate: 1 bolus; Site: right forearm; 02:40 Follow up: Response: No adverse reaction; IV Status: Completed infusion; IV Intake: rr5 1000ml 01:42 Drug: Zithromax 500 mg Route: IVPB; Infused Over: 1 hrs; Site: right antecubital; rr5 02:56 Follow up: Response: No adverse reaction; IV Status: Completed infusion; IV Intake: rr5 250ml Intake: 01:10 IV: 1000ml; Total: 1000ml. rr5 02:10 IV: 50ml; Total: 1050ml. rr5 02:40 IV: 1000ml; Total: 2050ml. rr5 02:56 IV: 250ml; Total: 2300ml. rr5 Outcome: 01:22 Discharge ordered by . bill 02:57 Discharged to home ambulatory. rr5 02:57 Condition: stable 02:57 Discharge instructions given to patient, Instructed on discharge instructions, follow up and referral plans. medication usage, Demonstrated understanding of instructions, follow-up care, medications, Prescriptions given X 2. 03:02 Patient left the ED. rr5 Addendum: 04/03/2020 10:57 Addendum: COVID-19 Result: Negative result given to RN to notify pt. Contacted by: Marcelino James RN. Notified pt of negative COVID 19 swab results. Pt advised that even with a negative test result they should remain in isolation until symptom free for 3 days without medication. Pt also advised to return to the ED for worsening symptoms. Signatures: Qiana James RN RN dm5 Alonso, Gaurav, Parag Milligan RN, MD MD cha Habalo, Winsy wh Botello, Elizabeth eb Roque, Raymond, RN RN rr5 Lopez Novoa 3 Felix Adams RN rr5
--- NOTE | 2020-03-30 01:23 | EDPHYS ---
Physician Documentation [facility] Name: Davy Cruz Age: 24 yrs Sex: Male : 1995 Arrival Date: 03/29/2020 Time: 20:16 Bed 6 Private MD: ED Physician Parag Wolff HPI: 03/29 23:34 This 24 yrs old Male presents to ER via Unassigned with complaints of Chest bill Pain, Back Pain. 23:34 The patient or guardian reports chest pain that is located primarily in the anterior [facility] chest wall, bilaterally. The pain radiates to back. Associated signs and symptoms: Pertinent positives: cough, shortness of breath. The chest pain is described as a pressure. Duration: The patient or guardian reports multiple episodes, with no pattern. Modifying factors: The symptoms are alleviated by nothing. the symptoms are aggravated by nothing. Severity of pain: At its worst the pain was moderate in the emergency department the pain is unchanged. The patient has not experienced similar symptoms in the past. Historical: - Allergies: 20:47 No Known Allergies; sg - Home Meds: 21:30 None [Active]; sg - PMHx: 21:30 None; sg - PSHx: 20:47 None; sg - Immunization history:: Adult Immunizations up to date. - Social history:: Smoking status: Patient reports the use of cigarette tobacco products, Patient uses alcohol. - Family history:: not pertinent. ROS: 23:34 Constitutional: Negative for fever, chills, and weight loss, Eyes: Negative for injury, bill pain, redness, and discharge, ENT: Negative for injury, pain, and discharge, Neck: Negative for injury, pain, and swelling, Abdomen/GI: Negative for abdominal pain, nausea, vomiting, diarrhea, and constipation, Back: Negative for injury and pain, : Negative for injury, bleeding, discharge, and swelling, MS/Extremity: Negative for injury and deformity, Skin: Negative for injury, rash, and discoloration, Neuro: Negative for headache, weakness, numbness, tingling, and seizure, Psych: Negative for depression, anxiety, suicide ideation, homicidal ideation, and hallucinations, Allergy/Immunology: Negative for hives, rash, and allergies, Endocrine: Negative for neck swelling, polydipsia, polyuria, polyphagia, and marked weight changes, Hematologic/Lymphatic: Negative for swollen nodes, abnormal bleeding, and unusual bruising. 23:34 Cardiovascular: Positive for palpitations. 23:34 Respiratory: Positive for cough, shortness of breath, at rest. Exam: 23:34 Constitutional: This is a well developed, well nourished patient who is awake, alert, bill and in no acute distress. Head/Face: Normocephalic, atraumatic. Eyes: Pupils equal round and reactive to light, extra-ocular motions intact. Lids and lashes normal. Conjunctiva and sclera are non-icteric and not injected. Cornea within normal limits. Periorbital areas with no swelling, redness, or edema. ENT: Nares patent. No nasal discharge, no septal abnormalities noted. Tympanic membranes are normal and external auditory canals are clear. Oropharynx with no redness, swelling, or masses, exudates, or evidence of obstruction, uvula midline. Mucous membranes moist. Neck: Trachea midline, no thyromegaly or masses palpated, and no cervical lymphadenopathy. Supple, full range of motion without nuchal rigidity, or vertebral point tenderness. No Meningismus. Chest/axilla: Normal chest wall appearance and motion. Nontender with no deformity. No lesions are appreciated. Cardiovascular: Regular rate and rhythm with a normal S1 and S2. No gallops, murmurs, or rubs. Normal PMI, no JVD. No pulse deficits. Abdomen/GI: Soft, non-tender, with normal bowel sounds. No distension or tympany. No guarding or rebound. No evidence of tenderness throughout. Back: No spinal tenderness. No costovertebral tenderness. Full range of motion. Male : Normal genitalia with no discharge or lesions. Skin: Warm, dry with normal turgor. Normal color with no rashes, no lesions, and no evidence of cellulitis. MS/ Extremity: Pulses equal, no cyanosis. Neurovascular intact. Full, normal range of motion. Neuro: Awake and alert, GCS 15, oriented to person, place, time, and situation. Cranial nerves II-XII grossly intact. Motor strength 5/5 in all extremities. Sensory grossly intact. Cerebellar exam normal. Normal gait. Psych: Awake, alert, with orientation to person, place and time. Behavior, mood, and affect are within normal limits. 23:34 Respiratory: the patient does not display signs of respiratory distress, Respirations: normal, no acute changes, Breath sounds: rales, that are mild, are heard diffusely, are heard in the right posterior upper lobe, right posterior middle lobe and right posterior lower lobe, decreased breath sounds, rhonchi. 03/30 01:26 ECG was reviewed by the Attending Physician. [facility] Vital Signs: 03/29 21:24 Pulse 108; Resp 18; Temp 98.0; Weight 92.53 kg; Height 5 ft. 8 in. (172.72 cm); sg 21:24 BP 142 / 91; Pulse 112; Resp 18; sg 23:00 BP 126 / 85; Pulse 110; Resp 19; Temp 98.2; Pulse Ox 99% ; Pain 4/10; rr5 03/30 00:00 BP 143 / 75; Pulse 99; Resp 17; Pulse Ox 98% on R/A; rr5 01:06 BP 136 / 83; Pulse 94; Resp 17; Pulse Ox 99% ; rr5 02:00 BP 121 / 70; Pulse 89; Resp 19; Pulse Ox 100% on R/A; rr5 02:50 BP 133 / 84; Pulse 90; Resp 19; Temp 97.7; Pulse Ox 99% on R/A; rr5 03/29 21:24 Body Mass Index 31.02 (92.53 kg, 172.72 cm) sg MDM: 03/29 23:05 Patient medically screened. [facility] 23:36 Data reviewed: vital signs, nurses notes, lab test result(s), EKG, radiologic studies. [facility] 03/29 23:34 Order name: Basic Metabolic Panel [facility] 03/29 23:34 Order name: CBC with Diff [facility] 03/29 23:34 Order name: LFT's [facility] 03/29 23:34 Order name: Magnesium [facility] 03/29 23:34 Order name: NT PRO-BNP [facility] 03/29 23:34 Order name: Troponin (emerg Dept Use Only) [facility] 03/29 23:34 Order name: Lipase [facility] 03/29 23:34 Order name: Blood Culture Adult (2) [facility] 03/30 00:37 Order name: CBC with Automated Diff; Complete Time: 00:42 EDMS 03/30 00:57 Order name: Basic Metabolic Panel; Complete Time: 01:12 EDMS 03/30 00:57 Order name: Liver (Hepatic) Function; Complete Time: 01:12 EDMS 03/30 00:57 Order name: Troponin (Emerg Dept Use Only); Complete Time: 01:12 EDDE 03/30 00:57 Order name: NT PRO-BNP; Complete Time: 01:12 EDDE 03/30 00:57 Order name: Magnesium; Complete Time: 01:12 EDDE 03/29 23:34 Order name: XRAY Chest (1 view) [facility] 03/29 23:34 Order name: EKG; Complete Time: 21:30 [facility] 03/29 23:34 Order name: Cardiac monitoring; Complete Time: 00:10 [facility] 03/29 23:34 Order name: EKG - Nurse/Tech; Complete Time: 00:10 [facility] 03/29 23:34 Order name: CT Head C Spine [facility] 03/30 00:57 Order name: Lipase; Complete Time: 01:12 [facility] 03/30 01:12 Order name: Flu [facility] 03/30 01:12 Order name: COVID-19 [facility] 03/30 02:57 Order name: Glucose, Ancillary Testing EDDE 03/29 23:34 Order name: IV Saline Lock; Complete Time: 00:10 [facility] 03/29 23:34 Order name: Labs collected and sent; Complete Time: 00:10 [facility] 03/29 23:34 Order name: O2 Per Protocol; Complete Time: 00:10 [facility] 03/29 23:34 Order name: O2 Sat Monitoring; Complete Time: 00:10 [facility] EC/09 01:26 Rate is 104 beats/min. Rhythm is regular. QRS [place] is Normal. ID interval is normal. [facility] QRS interval is normal. QT interval is normal. No Q waves. T waves are Normal. No ST changes noted. Clinical impression: Sinus tachycardia and No evidence of ischemia. Interpreted by me. Reviewed by me. Administered Medications: 00:10 Drug: NS 0.9% 1000 ml Route: IV; Rate: 1 bolus; Site: right forearm; rr5 01:10 Follow up: Response: No adverse reaction; IV Status: Completed infusion; IV Intake: rr5 1000ml 01:16 CANCELLED (Duplicate Order): Decadron - Dexamethasone 10 mg IVP once [facility] :34 Drug: Insulin Regular Human 10 units {Co-Signature: rr5 (Felix Adams RN).} Route: wh Sub-Q; Site: right lower abdomen; 02:45 Follow up: Response: No adverse reaction; Blood sugar is lowered rr5 01:35 Drug: metFORMIN 750 mg Route: PO; wh 02:40 Follow up: Response: No adverse reaction; Blood sugar is lowered rr5 01:38 Drug: Rocephin - (cefTRIAXone) 1 grams Route: IVPB; Infused Over: 30 mins; Site: right wh forearm; 02:10 Follow up: Response: No adverse reaction; IV Status: Completed infusion; IV Intake: [id number] 01:38 Drug: NS 0.9% 1000 ml Route: IV; Rate: 1 bolus; Site: right forearm; 02:40 Follow up: Response: No adverse reaction; IV Status: Completed infusion; IV Intake: rr5 1000ml 01:42 Drug: Zithromax 500 mg Route: IVPB; Infused Over: 1 hrs; Site: right antecubital; rr5 02:56 Follow up: Response: No adverse reaction; IV Status: Completed infusion; IV Intake: rr5 250ml Disposition: 03/30/20 01:22 Discharged to Home. Impression: Chest pain, unspecified, Pneumonia, unspecified organism - right lower lobe, Type 2 diabetes mellitus - new diagnosis. - Condition is Stable. - Discharge Instructions: Nonspecific Chest Pain, Type 2 Diabetes Mellitus, Diagnosis, Adult, Community-Acquired Pneumonia, Adult, Nonspecific Chest Pain, [id number], Community-Acquired Pneumonia, Adult, Kiuh-iy-Styg, Aspirin and Your Heart, Type 2 Diabetes Mellitus, Diagnosis, Adult, [id number]. - Prescriptions for Metformin 500 mg Oral Tablet - take 1 tablet by ORAL route every 12 hours for 7 days Then take 1 tablet with morning meals AND evening meals; 30 tablet. Zithromax 500 mg Oral Tablet - take 1 tablet by ORAL route once daily for 4 days; 4 tablet. - Medication Reconciliation Form, Thank You Letter, Antibiotic Education, Prescription Opioid Use form. - Follow up: Private Physician; When: 2 - 3 days; Reason: Recheck today's complaints, Continuance of care, Re-evaluation by your physician. Follow up: Michael Aleman DO; When: 2 - 3 days; Reason: Recheck today's complaints, Re-evaluation by your physician. - Problem is new. - Symptoms have improved. Signatures: Dispatcher [employer] Gaurav Woods RN RN sg Anderson, Corey, MD MD cha Habalo, Winsy wh Adams, Felix, RN RN rr5 Felix Adams RN rr5 Corrections: (The following items were deleted from the chart) 01:16 01:12 Decadron - Dexamethasone 10 mg IVP once ordered. bill khan 03:02 01:22 03/30/2020 01:22 Discharged to Home. Impression: Chest pain, unspecified; rr5 Pneumonia, unspecified organism - right lower lobe; Type 2 diabetes mellitus - new diagnosis. Condition is Stable. Forms are Medication Reconciliation Form, Thank You Letter, Antibiotic Education, Prescription Opioid Use. Follow up: Private Physician; When: 2 - 3 days; Reason: Recheck today's complaints, Continuance of care, Re-evaluation by your physician. Follow up: [facility]; When: 2 - 3 days; Reason: Recheck today's complaints, Re-evaluation by your physician. Problem is new. Symptoms have improved. bill
[2020-03-30] MEDS ORDERED: METFORMIN HCL 500 MG TAB ONE (01:35)
[2020-03-30] MEDS ORDERED: AZITHROMYCIN 500 MG INJ IVPB ONE (01:35)
[2020-03-30] MEDS ORDERED: INSULIN -REGULAR HUMAN 50 UNIT/0.5 ML ML ONE (01:36)
[2020-03-30] MEDS ORDERED: NA CHLORIDE 0.9% 1,000 ML ONE (01:36)
[2020-03-30] MEDS ORDERED: CEFTRIAXONE/SWI 1gm 1 GM/10 ML SYR ONE (01:36)
[2020-03-30] MEDS ORDERED: NA CHLORIDE 0.9% 250 ML ONE (01:41)
[2020-03-30 03:21] VITALS: BP 133/84; TEMP 97.7; O2SAT 99
--- NOTE | 2020-03-30 17:33 | RAD REPORT ---
EXAM DESCRIPTION: RAD - Chest Single View - 03/30/2020 1:10 am CLINICAL HISTORY: 24 years Male chest pain COMPARISON: None. FINDINGS: The study is suboptimal from patient body habitus and poor inspiratory effort. Questionable minimal infiltrate or atelectasis in the right lower lung. No pleural effusions. No pneumothorax. IMPRESSION: Questionable minimal infiltrate or atelectasis in the right lower lung. Follow-up recommended. Electronically signed by: Marshall Casas MD 03/30/2020 12:56 AM CDT Due to temporary technical issues with the PACS/Fluency reporting system, reports are being signed by the in house radiologistwithout review asa courtesy toensure prompt reporting. The interpreting radi ologist is fully responsible for the content of the report.
--- NOTE | 2020-03-30 17:35 | RAD REPORT ---
EXAM DESCRIPTION: CT - Head C Spine Mpr Wo Con - 03/30/2020 6:17 am CLINICAL HISTORY: The patient is 24 years old and is Male; HEADACHE / NECK PAIN TECHNIQUE: Axial computed tomography images of the head/brain and cervical spine without intravenous contrast. Sagittal and coronal reformatted images were created and reviewed. This CT exam was pe rformed using one or more of the following dose reduction techniques: automated exposure control, a djustment of the mA and/or kV according to patient size, and/or use of iterative reconstruction techn ique. DLP: 1191 mGy*cm COMPARISON: None. FINDINGS: BRAIN: Unremarkable. No hemorrhage. No significant white matter disease. No edema . VENTRICLES: Unremarkable. No ventriculomegaly. SKULL: No acute fracture. SINUSES: Small left maxillary mucous retention cysts. No air-fluid level. MASTOID AIR CELLS: Mastoid air cells are well pneumatized. ORBITS: Globes and orbits are within normal limits. VERTEBRAE: Straightening of cervical lordosis. No acute fracture. DISCS/SPINAL CANAL/NEURAL FORAMINA: No acute findings. No spinal canal stenosis. SOFT TISSUES: Unremarkable. LUNG APICES: Partially seen apical lung opacities. IMPRESSION: 1. No acute intracranial abnormality. 2. No acute cervical spine fracture or subluxation. 3. Partially seen apical lung opacities. Dedicated chest CT may be of diagnostic use. Electronically signed by: Choco Jacques DO 03/30/2020 12:54 AM CDT Due to temporary technical issues with the PACS/Fluency reporting system, reports are being signed by the in house radiologist without review as a courtesy to ensure prompt reporting. The interpreting r adiologist is fully responsible for the content of the report.
== END 2020-03-30 03:02 | disposition home or self-care (01) ==
LOC: ER 20:15
DX: J18.9 Pneumonia, unspecified organism (principal); Z20.828 Contact with and (suspected) exposure to other viral communicable diseases; E11.9 Type 2 diabetes mellitus without complications; Z72.0 Tobacco use
CPT/HCPCS: 36415; 70450; 71045; 72125; 80048; 80076; 82947; 83690; 83735; 83880; 84484; 85025; 87040; 87804; 93005; 96372; 99285; J0456; J0696; J7030; J7050; U0001